=== PATIENT | male | born 1955 | race Caucasian/White ===

== ENCOUNTER 2023-09-12 10:22 | Observation (INO) | payer OTHER, SELFPAY ==
[2023-09-12] VITALS (14 sets, daily range): BP systolic 125–169; BP diastolic 70–90; PULSE 59–78; RESP 15–18; TEMP 36.1–36.9; O2SAT 94–98; BMI 31.4
--- NOTE | 2023-09-12 10:37 | DI.RAD.S_ITS ---
PROCEDURE: XR HIP W PEL IF DONE LT 2V INDICATIONS: fall TECHNIQUE: AP pelvis with lateral view(s) of the left hip(s). COMPARISON: None. FINDINGS: Bones: No fractures or dislocations. Pelvic ring appears intact. No suspicious bony lesions. Soft tissues: The visualized bowel gas pattern is normal. No suspicious soft tissue calcifications. IMPRESSION: No acute bony abnormality. If there is high clinical suspicion for occult fracture, CT of the pelvis is recommended. Dictated by: Melissa Hood M.D. on 09/12/2023 at 11:58 Approved by: Melissa Hood M.D. on 09/12/2023 at 11:59
--- NOTE | 2023-09-12 10:38 | DI.RAD.S_ITS ---
PROCEDURE: XR SHOULDER LT MIN 2V INDICATIONS: fall TECHNIQUE: 2 views of the shoulder were acquired. COMPARISON: None. FINDINGS: Bones: There is a comminuted, displaced fracture of the scapular body. There are questionable for minimally displaced fractures of the posterior and lateral aspect of the left 4th rib. Soft tissues: There is a questionable pulmonary nodule at the left apex visualized on the oblique view. This is not seen on the AP view and may represent a bone island within the 2nd rib. IMPRESSION: 1. Comminuted displaced scapular body fracture. 2. Questionable rib fractures. 3. Left apical pulmonary nodule versus costal bone island. Dictated by: Melissa Hood M.D. on 09/12/2023 at 11:59 Approved by: Melissa Hood M.D. on 09/12/2023 at 12:01
--- NOTE | 2023-09-12 10:46 | DI.RAD.S_ITS ---
PROCEDURE: XR RIBS LT MIN 3V W CXR1V INDICATIONS: fall rib pain TECHNIQUE: 2 views of the left ribs were acquired, along with a single view chest. COMPARISON: [facility], CR, XR SHOULDER LT MIN 2V, 09/12/2023, 10:50. FINDINGS: Surgical changes and devices: None. Bones and chest wall: There are multiple left posterior rib fractures including a there are likely 4-8 posterior left rib fractures. A questionable bone island is present within the 2nd or 4th rib versus a pulmonary nodule. The scapular fracture is not well appreciated on the current study. Lungs and pleura: No pleural effusions or pneumothorax. Lungs appear clear. Mediastinum: Mediastinal contours appear normal. Heart size is normal. IMPRESSION: 1. Multiple left rib fractures. No pneumothorax. 2. Questionable bone island versus pulmonary nodule. Dictated by: Melissa Hood M.D. on 09/12/2023 at 12:01 Approved by: Melissa Hood M.D. on 09/12/2023 at 12:04
--- NOTE | 2023-09-12 10:52 | ED_ITS ---
HPI - Fall General Chief Complaint: Fall Stated Complaint: fall, hip/ L shoulder pain Time Seen by Provider: 09/12/23 10:46 Source: patient Mode of arrival: Ambulatory History of Present Illness HPI Narrative: Patient is a healthy 68-year-old male without significant past medical problems presenting today with fall. She was on a boat he went to shake hands when he fell through about 3-4 feet landing on his left side. He did not hit his head or lose consciousness he is not on antiplatelet or anticoagulation medication. He is significant left-sided rib and shoulder pain. Along with some mild left hip pain but he is ambulatory. Related Data Home Medications Medication Instructions Recorded Confirmed No Known Home Medications 09/12/23 09/12/23 Allergies Allergy/AdvReac Type Severity Reaction Status Date / Time No Known Drug Allergies Allergy Verified 09/12/23 10:33 Patient History Social History household members: spouse Smoking Status: Never smoker alcohol intake: current Smoking Status: Unknown if ever smoked alcohol intake frequency: holidays/special occasions only Substance Use Type: does not use Exam Initial Vital Signs Initial Vital Signs: Vital Signs Temperature 97.7 F 09/12/23 10:24 Pulse Rate 59 L 09/12/23 10:24 Respiratory Rate 15 09/12/23 10:24 Blood Pressure 129/72 09/12/23 10:24 Pulse Oximetry 98 09/12/23 10:24 Oxygen Delivery Method Room Air 09/12/23 10:24 GENERAL: Alert 68-year-old male appears to be in pain HEENT: Head atraumatic,EOMI, pupils reactive, face symmetric, moist mucous membranes CARDIOVASCULAR: Regular rate and rhythm without murmurs, rubs or gallops. RESPIRATORY: Breath sounds equal bilaterally, no wheezes rales or rhonchi. Tender left posterior rib without paradoxical movement significant contusion left ABDOMEN: Soft, nontender. Normoactive bowel sounds all 4 quadrants. No guarding or rebound. BACKL: Abrasions noted left ribs about 4 through 11 no paradoxical movement tender to touch no vertebral tenderness step-off EXTREMITIES: Normal range of motion, no clubbing or edema. Neurovascularly intact Left shoulder decreased range of motion tender scapula, distal radial pulse intact no clavicle step-off Pelvis and hips stable NEUROLOGICAL: Alert and oriented x4.Normal gait and speech. SKIN: Warm, dry, no laceration, no petechiae, no rashes or lesions. Scores GCS [place] coma scale eye opening: Spontaneous [place] coma scale verbal response: Orientated [place] coma scale motor response: Obey commands [place] coma scale total score: 15 Course Orders Ordered: ED Orders 09/12/23 10:37 XR hip w pel if done LT 2V Stat 09/12/23 10:38 XR shoulder LT min 2V Stat 09/12/23 10:46 XR ribs LT min 3V w CXR1V Stat 09/12/23 12:29 CT chest wo con Stat 09/12/23 14:07 Education, smoking cessation ONGOING 09/12/23 14:30 CBC Auto Diff [Complete Blood Count AUTO DIFF] Stat CMP [Comprehensive Metabolic Panel] Stat Acetaminophen (Acetaminophen 325 Mg Tablet) 650 mg PO Q6H PRN PRN Reason: Fever/Mild Pain (1-3) Last Admin: 09/12/23 17:59 Dose: 650 mg Documented By: YARI Hydrocodone Bitart/Acetaminophen (Hydrocodone/Acet 5/325 Tablet) 1 tab PO Q4H PRN PRN Reason: Pain, Moderate (4-6) Last Admin: 09/12/23 16:01 Dose: 1 tab Documented By: YARI Enoxaparin Sodium (Enoxaparin 40 Mg/0.4 Ml Syringe) 40 mg SUBCUT DAILY TIANA Hydromorphone HCl (Hydromorphone 0.5 Mg Inj) 0.5 mg IV Q2H PRN PRN Reason: Pain, Severe (7-10) Ibuprofen (Ibuprofen 600 Mg Tablet) 600 mg PO Q6H PRN PRN Reason: Fever/Mild Pain (1-3) Last Admin: 09/12/23 17:58 Dose: 600 mg Documented By: YARI Naloxone HCl (Naloxone 0.4 Mg/Ml Vial) 0.2 mg IV Q2MIN PRN PRN Reason: Opiate Reversal Discontinued Medications Hydrocodone Bitart/Acetaminophen (Hydrocodone/Acet 5/325 Tablet) 1 tab PO NOW ONE Stop: 09/12/23 12:29 Last Admin: 09/12/23 12:43 Dose: 1 tab Documented By: NEVILLE Ibuprofen (Ibuprofen 400 Mg Tablet) 800 mg PO NOW ONE Stop: 09/12/23 10:55 Last Admin: 09/12/23 11:12 Dose: 800 mg Documented By: SPF Vital Signs Vital signs: Vital Signs - 8 hr 09/12/23 11:14 09/12/23 11:30 09/12/23 11:30 Pulse Rate 63 59 L Blood Pressure 136/75 Pulse Oximetry 98 98 Oxygen Delivery Method Room Air 09/12/23 12:00 09/12/23 12:00 09/12/23 12:30 Pulse Rate 66 73 Blood Pressure 125/70 Pulse Oximetry 98 96 Oxygen Delivery Method 09/12/23 12:31 09/12/23 12:31 09/12/23 13:08 Pulse Rate 69 71 Blood Pressure 150/75 H Pulse Oximetry 97 98 Oxygen Delivery Method Room Air 09/12/23 13:30 09/12/23 14:00 Pulse Rate 76 78 Blood Pressure Pulse Oximetry 95 94 Oxygen Delivery Method MDM - Fall Lab Data 09/12/23 14:30 09/12/23 14:[address] scan - chest: Radiologist's Impression: PROCEDURE: CT CHEST WO CON INDICATIONS: Multiple rib fractures, scapular fracture TECHNIQUE: Noncontrast 5 mm thick sections acquired from the pulmonary apices to the posterior costophrenic angles. 1 mm lung window, 5 mm thick coronal and sagittal and 7 mm axial MIP reformats were then acquired. For radiation dose reduction, the following was used: automated exposure control, adjustment of mA and/or kV according to patient size. COMPARISON: None. FINDINGS: Image quality: Diagnostic. Lungs and pleura: Lung volumes are low. The right lung is clear. Patchy airspace opacities are present at the left lung base. There is a trace left pleural effusion which may represent a small hemothorax. No pneumothorax. Mediastinum: Heart size is normal. No pericardial effusion. No mediastinal adenopathy by size criteria. Thoracic aorta and central pulmonary arteries are normal in size. Esophagus is normal in caliber. There is a small hiatal hernia. Bones and chest wall: Thyroid is unremarkable. There are minimally displaced posterior left 4th, 5th, 6th, 7th, 8th, and 9th rib fractures. There is a comminuted, impacted, displaced left inferior scapular body fracture. Vertebral body height is preserved. No findings to suggest compression fracture. Upper Abdomen: Visualized upper abdominal solid organs and bowel loops appear normal in the absence of contrast. IMPRESSION: 1. Multiple left rib fractures and scapular body fracture. 2. Left basilar pulmonary radiopacities which may represent aspiration or atelectasis. Trace pleural effusion may represent trace hemothorax. No pneumothorax. Dictated by: Melissa Hood M.D. on 09/12/2023 at 13:22 MDM Narrative Medical decision making narrative: Patient is 68-year-old male presents today after a fall. He has a contusion over left ribs found to have multiple rib fractures on x-ray along with a scapular fracture. CT confirmed fractures 4 through 9 and a comminuted scapular fracture. His abdomen is soft nontender. Not on any anticoagulation and hemodynamically stable. He initially only wanted Motrin for pain eventually took [place]. Dr. Hernadez updated patient's symptoms test results reviewed CT states that sling only for scapular fracture no need any sort of intervention. Dr. Tejeda updated on patient's symptoms test results agrees with admission. Blood work ordered and pending. Discharge Plan Departure Patient Disposition: Admitted as Observation Clinical Impression: Fracture of ribs, multiple, closed, Fracture closed, scapula Admit Date/Time: 09/12/23 14:24 Admit Provider: Douglas Tejeda
[2023-09-12] MEDS: IBUPROFEN 400 MG TABLET 800 MG PO (11:12)
--- NOTE | 2023-09-12 12:29 | DI.CT.S_ITS ---
PROCEDURE: CT CHEST WO CON INDICATIONS: Multiple rib fractures, scapular fracture TECHNIQUE: Noncontrast 5 mm thick sections acquired from the pulmonary apices to the posterior costophrenic angles. 1 mm lung window, 5 mm thick coronal and sagittal and 7 mm axial MIP reformats were then acquired. For radiation dose reduction, the following was used: automated exposure control, adjustment of mA and/or kV according to patient size. COMPARISON: None. FINDINGS: Image quality: Diagnostic. Lungs and pleura: Lung volumes are low. The right lung is clear. Patchy airspace opacities are present at the left lung base. There is a trace left pleural effusion which may represent a small hemothorax. No pneumothorax. Mediastinum: Heart size is normal. No pericardial effusion. No mediastinal adenopathy by size criteria. Thoracic aorta and central pulmonary arteries are normal in size. Esophagus is normal in caliber. There is a small hiatal hernia. Bones and chest wall: Thyroid is unremarkable. There are minimally displaced posterior left 4th, 5th, 6th, 7th, 8th, and 9th rib fractures. There is a comminuted, impacted, displaced left inferior scapular body fracture. Vertebral body height is preserved. No findings to suggest compression fracture. Upper Abdomen: Visualized upper abdominal solid organs and bowel loops appear normal in the absence of contrast. IMPRESSION: 1. Multiple left rib fractures and scapular body fracture. 2. Left basilar pulmonary radiopacities which may represent aspiration or atelectasis. Trace pleural effusion may represent trace hemothorax. No pneumothorax. Dictated by: Melissa Hood M.D. on 09/12/2023 at 13:22 Approved by: Melissa Hood M.D. on 09/12/2023 at 13:30
[2023-09-12] MEDS: HYDROCODONE/ACET 5/325 TABLET 1 TAB PO ×3 (12:43→19:55)
[2023-09-12 15:18] LABS: Add Manual Diff / Slide Review NO; Basophils Absolute Auto 0 /uL (0-100); Basophils Percent Auto 0.1 % (0-2); Eosinophils Absolute Auto 0 /uL (0-450); Eosinophils Percent Auto 0.1 % (2-4); Hemoglobin 15.3 g/dL (13.5-17.5); Lymphocytes Absolute Auto 800 /uL (1100-4500); Lymphocytes Percent Auto 5.1 % (25-40); Mean Corpuscular Hemoglobin 30.4 PG (26-34); Mean Corpuscular Volume 89.5 fL (80-100); Monocytes Absolute Auto 600 /uL (0-900); Monocytes Percent Auto 4.3 % (3-14); Neutrophils Absolute Auto 13500 /uL (1500-7000); Neutrophils Percent Auto 90.4 % (50-75); Platelet Count 290 X10^3/uL (150-400); Red Blood Cell Count 5.03 X10^6/uL (4.5-5.9); Red Cell Distribution Width 13.9 % (11.6-14.8); White Blood Cell Count 14.9 X10^3/uL (4.5-11.0)
[2023-09-12 15:24] LABS: Alanine Aminotransferase 26 IU/L (<50); Albumin 4.4 g/dL (3.5-5.0); Albumin Globulin Ratio 1.5 (1.0-2.8); Alkaline Phosphatase 57 U/L (38-126); Aspartate Aminotransferase 30 IU/L (17-59); BUN Creatinine Ratio 23.8 (6-22); Bilirubin Total 1.3 mg/dL (0.2-1.3); Blood Urea Nitrogen 20 mg/dL (9-20); Calcium 9.4 mg/dL (8.4-10.2); Carbon Dioxide 25 mmol/L (22-32); Chloride 105 mmol/L (98-107); Estimated Glomerular Filt Rate > 60 mL/min (>60); Globulin 2.9 g/dL (1.7-4.1); Glucose 121 mg/dL (80-110); HEMOLYSIS 26 (0-50); Potassium 4.1 mmol/L (3.4-5.1); Sodium 136 mmol/L (137-145); Total Protein 7.3 g/dL (6.3-8.2)
[2023-09-12] MEDS: IBUPROFEN 600 MG TABLET PO ×2 (17:58→23:25)
[2023-09-12] MEDS: ACETAMINOPHEN 325 MG TABLET 650 MG PO ×2 (17:59→23:25)
--- NOTE | 2023-09-12 18:29 | P.HP_ITS ---
History of Present Illness History of Present Illness Date Patient Seen: 09/12/23 Time Patient Seen: 19:51 Chief complaint: fall, hip/ L shoulder pain Narrative: Mr. Purdy is a 68-year-old man who had a fall today of approximately 4 ft onto his left chest. He did not strike his head or lose consciousness. Presented to the [facility] 09/12/2023 for evaluation with complaint of left chest and left upper extremity pain. On arrival hemodynamically stable hematocrit 45 mild leukocytosis the remainder of his labs were unremarkable. Imaging CT chest abdomen and pelvis - left rib fractures 4 through 9. -left scapular body fracture [facility] Social History household members: spouse Smoking Status: Never smoker alcohol intake: current Meds Home Medications and Allergies Home Medications Medication Instructions Recorded Confirmed Type No Known Home Medications 09/12/23 09/12/23 History Allergies Allergy/AdvReac Type Severity Reaction Status Date / Time No Known Drug Allergies Allergy Verified 09/12/23 10:33 Exam Vital Signs (past 8 hours): - 09/12/23 11:14 09/12/23 11:30 09/12/23 11:30 Temperature Pulse Rate 63 59 L Respiratory Rate Blood Pressure 136/75 Pulse Oximetry 98 98 Oxygen Delivery Method Room Air Oxygen Flow Rate 09/12/23 12:00 09/12/23 12:00 09/12/23 12:30 Temperature Pulse Rate 66 73 Respiratory Rate Blood Pressure 125/70 Pulse Oximetry 98 96 Oxygen Delivery Method Oxygen Flow Rate 09/12/23 12:31 09/12/23 12:31 09/12/23 13:08 Temperature Pulse Rate 69 71 Respiratory Rate Blood Pressure 150/75 H Pulse Oximetry 97 98 Oxygen Delivery Method Room Air Oxygen Flow Rate 09/12/23 13:30 09/12/23 14:00 09/12/23 14:30 Temperature Pulse Rate 76 78 74 Respiratory Rate Blood Pressure Pulse Oximetry 95 94 94 Oxygen Delivery Method Room Air Oxygen Flow Rate 09/12/23 15:10 Temperature 98.4 F Pulse Rate 67 Respiratory Rate 16 Blood Pressure 152/76 H Pulse Oximetry 97 Oxygen Delivery Method Oxygen Flow Rate 0 Oxygen Delivery Method Room Air Oxygen Flow Rate 0 Narrative Exam Narrative: GENERAL: A well nourished, well developed adult man, resting comfortably, in no acute distress. HEENT: Normocephalic, atraumatic. No scleral icterus CHEST: Rising symmetrically. No audible wheezes CARDIOVASCULAR: Warm and well perfused. Regular rate ABDOMEN: Soft, non-tender, non-distended EXTREMITIES: -left upper extremity palpable radial pulse motor sensory intact. Limited range of motion. NEUROLOGIC: Moving all extremities spontaneously. No gross motor deficits. Objective Labs 09/12/23 14:30 09/12/23 14:30 Labs: Laboratory Results - last 24 hr 09/12/23 14:30 WBC 14.9 H RBC 5.03 Hgb 15.3 Hct 45.0 MCV 89.5 MCH 30.4 MCHC 34.0 RDW 13.9 Plt Count 290 Neut % (Auto) 90.4 H Lymph % (Auto) 5.1 L [place] % (Auto) 4.3 Eos % (Auto) 0.1 L Baso % (Auto) 0.1 Neut # (Auto) 81066 H Lymph # (Auto) 800 L [place] # (Auto) 600 Eos # (Auto) 0 Baso # (Auto) 0 Sodium 136 L Potassium 4.1 Chloride 105 Carbon Dioxide 25 BUN 20 Creatinine 0.84 Estimated GFR > 60 BUN/Creatinine Ratio 23.8 H Glucose 121 H Calcium 9.4 Total Bilirubin 1.3 AST 30 ALT 26 Alkaline Phosphatase 57 Total Protein 7.3 Albumin 4.4 Globulin 2.9 Albumin/Globulin Ratio 1.5 Assessment & Plan Assessment and plan (1) Fracture closed, scapula: Qualifiers: Encounter type: initial encounter Scapula location: body Fracture alignment: displaced Laterality: left Qualified Code(s): S42.112A - Displaced fracture of body of scapula, left shoulder, initial encounter for closed fracture Status: Acute (2) Fracture of ribs, multiple, closed: Qualifiers: Encounter type: initial encounter Laterality: left Qualified Code(s): S22.42XA - Multiple fractures of ribs, left side, initial encounter for closed fracture Status: Acute Assessment & Plan narrative: 68-year-old man status post 4 feet fall onto left chest hemodynamically stable with left scapular and left rib fractures. Laboratory studies and imaging personally. Left rib fractures 4 through 9 -multimodal pain control -incentive spirometry Left scapular body fracture -sling -orthopedic consult likely non operative VTE prophylaxis -SCDs and prophylactic Lovenox Disposition Anticipate discharge home tomorrow following orthopedic evaluation Quality VTE Deep Vein Thrombosis/Pulmonary Embolism Present on Admission: No
--- NOTE | 2023-09-12 18:31 | DI.CT.S_ITS ---
PROCEDURE: CT ABDOMEN PELVIS W CON INDICATIONS: s/p fall TECHNIQUE: After the administration of intravenous contrast, axial sections acquired from the lung bases to the pubic symphysis. Coronal and sagittal reformats were performed. For radiation dose reduction, the following was used: automated exposure control, adjustment of mA and/or kV according to patient size. COMPARISON: None. FINDINGS: Image quality: Excellent. Lung bases: Please refer to separately dictated CT of the chest from the same day ABDOMEN: Liver: Hepatic cysts and subcentimeter hypodensities which are too small technique characterize and favored to represent simple cysts.. Gallbladder: Mildly contracted, otherwise unremarkable. Biliary ducts: Unremarkable. Pancreas: Unremarkable. Spleen: Unremarkable. Adrenal Glands: Unremarkable. Kidneys and Ureters: Unremarkable. Stomach and Bowel: Small hiatal hernia. Stomach, small bowel loops, and colon are unremarkable. Diverticulosis without evidence of acute diverticulitis. Normal appendix. Peritoneum: No abnormal intraperitoneal fluid. No free air. Ventral Wall: No hernias. Abdominal Nodes: No retroperitoneal or mesenteric adenopathy by size criteria. Vessels: Aorta and inferior vena cava are normal in size. PELVIS: Pelvic Organs: Unremarkable. Bladder: Unremarkable. Pelvic Nodes: No enlarged lymph nodes. Miscellaneous: Small fat containing inguinal hernias are seen. Bones: Degenerative changes of the spine, most pronounced at L5-S1. Left-sided rib fractures are redemonstrated. IMPRESSION: 1. No acute traumatic injury within the abdomen or pelvis. No hip fractures. 2. Diverticulosis without evidence of acute diverticulitis. 3. Left-sided rib fractures are redemonstrated. Dictated by: Aryan Kapadia M.D. on 09/12/2023 at 19:28 Approved by: Aryan Kapadia M.D. on 09/12/2023 at 19:33
[2023-09-13] VITALS: BP 149/84; PULSE 69; RESP 17; TEMP 36.1; O2SAT 96
[2023-09-13] MEDS: HYDROCODONE/ACET 5/325 TABLET 1 TAB PO ×2 (00:02→09:38)
--- NOTE | 2023-09-13 00:35 | PC.NURSE ---
Addendum entered by Blanca White R.N. 09/13/23 06:48: Patient ambulated to bathroom stand-by assistance @0430, slight limp d/t left hip pain. 8/10 pain after ambulating mostly in left shoulder, requested IV Dilaudid. Patient stated he immediately felt better after receiving dose. Resting in bed, call-light within reach, bed alarm is on. 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 Lung sounds are clear, incentive spirometer at bedside. Sling for left arm ordered per MD Tejeda & placed. Spouse is in the room. Patient has complaints of 7/10 pain in the left shoulder, left hip, & left side of chest (d/t multiple rib fx). Pain increases when taking a deep breath. Ibuprofen & Tylenol given Q6hrs, [place] given Q4hrs for pain, pt states it has been effective. Denies nausea or dizziness. SCDs are on. Patient is ambulatory and able to walk to the bathroom, educated to use call-light prior to getting OOB.
[2023-09-13 04:00] VITALS: BP 147/92; PULSE 71; RESP 16; TEMP 35.8; O2SAT 98
[2023-09-13] MEDS: HYDROMORPHONE 0.5 MG INJ IV ×2 (04:31→12:50)
[2023-09-13] MEDS: IBUPROFEN 600 MG TABLET PO (04:32)
[2023-09-13 08:00] VITALS: BP 124/72; PULSE 72; RESP 16; TEMP 36.2; O2SAT 97; O2SAT 98
[2023-09-13] MEDS: ENOXAPARIN 40 MG/0.4 ML SYRINGE SUBCUT (09:38)
--- NOTE | 2023-09-13 10:22 | P.CONS_ITS ---
History of Present Illness Consult details Date Patient Seen: 09/13/23 Time Patient Seen: 10:22 Chief complaint: fall, hip/ L shoulder pain Reason for consult: Left scapula fx Narrative: Mr Whitley is a healthy, 68 yo gentleman who experienced a ground level fall onto his left side yesterday, resulting in fractures of multiple ribs on the left as well as a left-sided scapular body fracture. He was admitted to Dr Ileana vazquez/ general surgery and Dr Hernadez was consulted for scapular fx. On visit this morning, he is c/o left-sided chest and shoulder pain and worried about receiving pain medication prior drive back home to [place]. He plans to receive future medical care in [place]. He is right-hand dominant. Meds Home Medications and Allergies Home Medications Medication Instructions Recorded Confirmed Type No Known Home Medications 09/12/23 09/12/23 History Allergies Allergy/AdvReac Type Severity Reaction Status Date / Time No Known Drug Allergies Allergy Verified 09/12/23 10:33 Review of Systems Musculoskeletal Musculoskeletal: Reports system reviewed and no additional complaints, except as documented Exam Vital Signs (past 8 hours): - 09/13/23 04:00 09/13/23 04:00 09/13/23 08:00 Temperature 96.4 F L 97.2 F L Pulse Rate 71 72 Respiratory Rate 16 16 Blood Pressure 147/92 H 124/72 Pulse Oximetry 98 98 97 Oxygen Delivery Method Room Air Oxygen Flow Rate 0 0 09/13/23 08:00 Temperature Pulse Rate Respiratory Rate Blood Pressure Pulse Oximetry 98 Oxygen Delivery Method Room Air Oxygen Flow Rate Oxygen Delivery Method Room Air Oxygen Flow Rate 0 Narrative Exam Narrative: LUE exam: 5/5 gas blender strength and hand intrinsics. Pts left hand intrinsics and strength not as powerful as right d/t remote injury to left wrist. Able to flex and extend at wrist without difficulty. Full extension of elbow limited d/t pain. Motion of shoulder not examined d/t injury. Sling well placed. No significant ecchymosis noted. Sensation to touch intact throughout UE. Const General: cooperative, healthy appearing, comfortable and well developed Eyes General: appearance normal, both eyes and all related structures Neck Neck: normal visual inspection Resp Effort & Inspection: normal respiratory effort and able to speak in complete sentences Cardio Rate: regular rate Neuro General: patient alert, patient awake and patient oriented x3 Objective Labs 09/12/23 14:30 09/12/23 14:30 Labs: Laboratory Results - last 24 hr 09/12/23 14:30 WBC 14.9 H RBC 5.03 Hgb 15.3 Hct 45.0 MCV 89.5 MCH 30.4 MCHC 34.0 RDW 13.9 Plt Count 290 Neut % (Auto) 90.4 H Lymph % (Auto) 5.1 L [place] % (Auto) 4.3 Eos % (Auto) 0.1 L Baso % (Auto) 0.1 Neut # (Auto) 00441 H Lymph # (Auto) 800 L [place] # (Auto) 600 Eos # (Auto) 0 Baso # (Auto) 0 Sodium 136 L Potassium 4.1 Chloride 105 Carbon Dioxide 25 BUN 20 Creatinine 0.84 Estimated GFR > 60 BUN/Creatinine Ratio 23.8 H Glucose 121 H Calcium 9.4 Total Bilirubin 1.3 AST 30 ALT 26 Alkaline Phosphatase 57 Total Protein 7.3 Albumin 4.4 Globulin 2.9 Albumin/Globulin Ratio 1.5 PFSH Social History household members: spouse Tobacco & Substance Use Smoking Status: Never smoker alcohol intake: current Assessment & Plan Assessment and plan (1) Fracture closed, scapula: Qualifiers: Encounter type: initial encounter Fracture alignment: displaced L aterality: left Scapula location: body Qualified Code(s): S42.112A - Displaced fracture of body of scapula, left shoulder, initial encounter for closed fracture Status: Acute Plan Unrestricted active ROM at hand, wrist, and elbow on left. Limit weightbearing of left hand to 3 pounds. Sling while upright, ok for pendulum exercises on left. Follow up w/ local orthopedist in 2 weeks for repeat imaging, sooner if he experiences any neurovascular changes on left.
--- NOTE | 2023-09-13 11:50 | PT.IIE ---
Current Diagnoses Multiple fractures of ribs, left side, initial encounter for closed fracture (09/12/23) Displaced fracture of body of scapula, left shoulder, initial encounter for closed fracture (09/12/23) Physical Therapy Inpatient Evaluation/Re-Eval M1 PT/OT-IP Prior Functional Status Start: 09/13/23 14:17 Freq: NEEDED Status: Active Protocol: Document 09/13/23 11:50 AB (Rec: 09/13/23 14:31 AB [id number]) Medical Review Prior Functional Status Medical History Reviewed Yes Communication able to make needs known Mobility and Gait pt stated that he was independent with all mobilities and ambulation without AD Social History Household Members spouse Living Arrangements House Number of Floors (Floors) One Floor Number of Stairs To Enter/Railing? no steps to enter from the garage Home Environment Walk in Shower Home Equipment Hand Held Shower Additional Social History Comment pt has an adjustable bed M2 PT-IP Current Condition Start: 09/13/23 14:17 Freq: NEEDED Status: Active Protocol: Document 09/13/23 11:50 AB (Rec: 09/13/23 14:31 AB [id number]) Physical Therapy Current Condition Current Condition Evaluation Date 09/13/23 Treatment Diagnosis s/p fall; L rib fx; L scapular fx; difficulty in walking Onset Date 09/12/23 M3 PT-IP Subjective Start: 09/13/23 14:17 Freq: NEEDED Status: Active Protocol: Document 09/13/23 11:50 AB (Rec: 09/13/23 14:31 AB [id number]) Subjective Physical Therapy Visit Type Type Initial Evaluation Visit Start Time 11:50 Visit Stop Time 12:30 Total Visit Minutes 40 Number of SEARCH STRATEGIST Visits 0 Physical Therapy Visit Comments Patient Comments agreeable to do PT Therapy Pain Assessment Pain When Pain Assessed At Rest Location left shoulder/hip Intensity 7 Scale Used Numeric (0 - 10) Pain Management Techniques Distraction,Modification of Treatment,Re-positioning, Timing of Activity with Medications M4 PT-IP Mobility and Gait Start: 09/13/23 14:17 Freq: NEEDED Status: Active Protocol: Document 09/13/23 11:50 AB (Rec: 09/13/23 14:31 AB [id number]) PT-Bed Mobility Assessment Supine to Sit Supine to Sit Standby Assistance,Head of Bed Elevated Sit to Supine Sit to Supine Standby Assistance,Head of Bed Elevated PT-Transfer Assessment Sit to and From Stand Sit to and from Stand Standby Assistance Equipment Transfer Assistive Device None,Gait Belt Orthotic/Prosthetic Devices or Brace: Yes Comments Mobility Comments pt is sitting on EOB. spouse in room. pt agreed to do PT. educated pt and spouse regarding pt's scapular/L shoulder restrictions and sling management. doffed sling and pt educated elbow/ hand/wrist exercises and completed. educated pt and spouse on how to put sling on. PT demonstrated and spouse counter demonstrated and was able to put sling on. pt completed sit<>supine SBA with HOB elevated ~ 30 deg. pt has an adjustable bed at home . educated spouse on proper bed and chair positioning for pt. pt completed sit to stand from EOB SBA and ambulated in room without AD. pt presents with antalgic gait but without LOB. pt stated that he hurt his L hip when he had the fall. pt is (-)for L hip fx from xray result. pt sat back on EOB. pt provided with HEP sheet. pt and spouse without further concerns. Gait Assessment Gait Gait Assistance Required: Standby Assistance Distance (Feet) 40 Able to Maintain Weight Bearing Status Yes During Gait Assistive Devices Assistive Device None Orthotic/Prosthetic Devices or Brace: Yes Gait Deviations General Gait Pattern Antalgic,Step-to Gait Factors Limiting Gait Function Factors Limiting Gait Function Decreased Activity Tolerance, Decreased Strength,Limited Range of Motion,Pain,Poor Balance,Poor Safety Awareness PT-Balance Assessment Sitting Balance and Reactions Static Sitting Balance Ability Normal Dynamic Sitting Balance Ability Normal Standing Balance and Reactions Static Standing Balance Ability Good Dynamic Standing Balance Ability Fair Device Used without AD M5 PT-IP Objective Assessments Start: 09/13/23 14:17 Freq: NEEDED Status: Active Protocol: Document 09/13/23 11:50 AB (Rec: 09/13/23 14:31 AB [id number]) Orientation Orientation/Cognition Level of Alertness Alert Orientation Name,Place,Situation Language Function Ability No Deficits Noted Safety Awareness Understands Safety Issues Memory Description No Deficits Noted Gross Range of Motion Lower Extremity ROM Assessment Within Functional Limits Strength Lower Extremity Strength Assessment Within Functional Limits Coordination Assessment Gross Coordination Gross Coordination WNL Sensation Assessment Sensation Gross Sensation WNL Muscle Tone Muscle Tone WNL Yes M6 PT-IP Treatment Start: 09/13/23 14:17 Freq: NEEDED Status: Active Protocol: Document 09/13/23 11:50 AB (Rec: 09/13/23 14:31 AB [id number]) Physical Therapy Treatment Education Education Provided Precautions,Weight Bearing Status,Safety M7 PT-IP Assessment and Plan Start: 09/13/23 14:17 Freq: NEEDED Status: Active Protocol: Document 09/13/23 11:50 AB (Rec: 09/13/23 14:31 AB [id number]) PT Summary Assessment and Plan Potential Rehabilitation Potential Fair Status of Condition at Evaluation Evolving Summary Impairments Pain,ROM,Strength,Balance, Coordination,Sensation,Tone, Cognition,Bed Mobility, Transfers,Gait,Activity Tolerance Assessment Summary pt is a 68 y/o M who had a fall and sustained multiple L rib fractures and L scapular body fx. pt has L sling on and is NWB on LUE . pt requiring SBA with mobility without AD. caregiver training conducted for sling management and spouse was able to assist pt with sling. pt plans to go home with spouse to assist. pt may go home when medically stable. Goals Bed Mobility Goal Independent Transfer Goal Independent Gait Goal Independent Gait Distance 300 Days to Meet Goals 5 Frequency of Treatment Frequency Of Treatment Once a Day Treatment Plan Physical Therapy Treatment Plan Bed Mobility Training,Transfer Training,Gait Training, Therapeutic Exercise,Balance Retraining,Discharge Planning, Hot or Cold Pack,Neuromuscular Re-ed,Coordination Retraining Precautions Shoulder Precautions Sling,Pendulums Other Precautions falls per PA Beh notes dated : Unrestricted active ROM at hand, wrist, and elbow on left. Limit weightbearing of left hand to 3 pounds. Sling while upright, ok for pendulum exercises on left. Follow up w/ local orthopedist in 2 weeks for repeat imaging, sooner if he experiences any neurovascular changes on left. Weight Bearing Status Weight Bearing Status Non-Weight Bearing Recommendations To Nursing Amount of Assist Needed Standby Assistance Discharge Recommendations PT Discharge Recommendations Home with Assistance, Outpatient PT Transportation Needs at Discharge Private Vehicle
--- NOTE | 2023-09-13 11:53 | P.DS_ITS ---
History of Present Illness History of Present Illness Chief complaint: fall, hip/ L shoulder pain Discharge Providers Provider Date of admission: 09/12/23 14:24 Discharge Date: 09/13/23 Consults: 09/12/23 18:33 Consult to Orthopedic Surgery Routine Comment: Consulting Provider: [facility] Reason for consultation: L scapular fracture Has provider been notified: No 09/12/23 18:37 Consult to Physical Therapy Evaluate & Treat Comment: Physician Instructions: Evaluate and Treat Discharge provider: Lloyd Akers MD Summary Hospital Course Discharge Diagnosis: Left-sided rib fractures and left scapular fracture Hospital Course: Donnie was admitted for pulmonary hygiene and pain control. Orthopedics saw him for his scapular fracture and prescribed a sling. He was discharged with instructions to continue using his incentive spirometer until his pain was gone. Exam Vital Signs (past 8 hours): - 09/13/23 04:00 09/13/23 04:00 09/13/23 08:00 Temperature 96.4 F L 97.2 F L Pulse Rate 71 72 Respiratory Rate 16 16 Blood Pressure 147/92 H 124/72 Pulse Oximetry 98 98 97 Oxygen Delivery Method Room Air Oxygen Flow Rate 0 0 09/13/23 08:00 Temperature Pulse Rate Respiratory Rate Blood Pressure Pulse Oximetry 98 Oxygen Delivery Method Room Air Oxygen Flow Rate Oxygen Delivery Method Room Air Oxygen Flow Rate 0 Objective Labs 09/12/23 14:30 09/12/23 14:30 Labs: Laboratory Results - last 24 hr 09/12/23 14:30 WBC 14.9 H RBC 5.03 Hgb 15.3 Hct 45.0 MCV 89.5 MCH 30.4 MCHC 34.0 RDW 13.9 Plt Count 290 Neut % (Auto) 90.4 H Lymph % (Auto) 5.1 L [place] % (Auto) 4.3 Eos % (Auto) 0.1 L Baso % (Auto) 0.1 Neut # (Auto) 75478 H Lymph # (Auto) 800 L [place] # (Auto) 600 Eos # (Auto) 0 Baso # (Auto) 0 Sodium 136 L Potassium 4.1 Chloride 105 Carbon Dioxide 25 BUN 20 Creatinine 0.84 Estimated GFR > 60 BUN/Creatinine Ratio 23.8 H Glucose 121 H Calcium 9.4 Total Bilirubin 1.3 AST 30 ALT 26 Alkaline Phosphatase 57 Total Protein 7.3 Albumin 4.4 Globulin 2.9 Albumin/Globulin Ratio 1.5 PFSH Social History household members: spouse Smoking Status: Never smoker alcohol intake: current Discharge Plan Discharge Plan Patient Disposition: Home Provider Discharge Comment: Use incentive spirometer until rib pain resolves. Take a stool softener or a fiber supplement while taking the [place]. Discharge orders & Medications Prescriptions: New hydrocodone-acetaminophen 5-325 mg tablet 1 tab PO Q8H PRN (Reason: pain) Qty: 20 0RF Visit Report/Discharge Packet Stand Alone Forms: Patient Portal/API, Stroke Signs & Symptoms Discharge Data Attending Provider: Douglas Tejeda Admit Date/Time: 09/12/23 14:24 Quality VTE Deep Vein Thrombosis/Pulmonary Embolism Present on Admission: No
[2023-09-13 12:00] VITALS: O2SAT 98
--- NOTE | 2023-09-13 13:01 | CM.DANOTE ---
Patient is a 68 yo male who was admitted on 09/12/23 for Fall with fxs. Pt has REG MCR ADV for insurance and his PCP is in [place]. EMR was reviewed. Per Ortho Consult, pt with multiple rib fx and scapula fx but no surgery at this time and pt to use a sling and pain management. Per Surgeon, pt medically stable to d/c home today with outpt f/u and no identified barriers to discharge. Per PT, pt fitted with sling and participated in teaching and spouse bedside and participate in CG training and given educational handouts. SW met bedside with pt and spouse and explained role and they confirm they live in [place] and are both active and independent at baseline and pt does not use DME for ambulation and he still drives. Pt and spouse were in [place] from home viewing a boat for sale when pt slipped on the wet boat and injured himself. Spouse confirms that she can transport pt home today and SW helped confirm that scripts were sent to [place] [facility]where and they will f/u with local Ortho MD once they get home later today. No further needs at this time. Plan: Patient to d/c home today via spouse POV back to [place] with their local outpt f/u with PCP and Ortho. No further SW needs at this time. MARY Blanca Discharge Planning/Care Management CM Discharge Assessment Start: 09/13/23 12:56 Freq: Status: Active Protocol: Document 09/13/23 12:56 BF (Rec: 09/13/23 13:01 [id number]) Discharge Planning Assessment Assigned Telemetry Monitor MARY Maharaj DPOA/Assigned Designee Name informally spouse Jaylyn Contact Information [phone] Advance Directives? No Advance Directives on File No History Provided By Patient,Significant Other, Medical Record Has Patient been admitted in last 30 No days? Prior Living Arrangements House Household Members spouse Type of transporation used prior to Drives own vehicle admit Independent with ADL's Yes Is patient alert and oriented? Yes Caregiver for Another No Barriers to Discharge No Discharge Plan Home Community Services Physical Therapy Transportation Arrangement Spouse bedside Referrals Initiated None needed Whiteboard Updated in Patient Room with Yes name and ext. # of Telemetry Monitor Review Status In Process Please Provide Date Initial DC 09/13/23 Assessment Was Performed Next Review Type Continued Stay Review
== END 2023-09-13 13:05 | disposition home or self-care (01) ==
LOC: ED 10:54 → AC 14:25
PROVIDERS: Admitting Provider Surgery; Emergency Provider Emergency Medicine; Referring Provider Emergency Medicine; Visit Provider Surgery
DX: S42.112A Displaced fracture of body of scapula, left shoulder, initial encounter for closed fracture (principal); S22.42XA Multiple fractures of ribs, left side, initial encounter for closed fracture; W18.30XA Fall on same level, unspecified, initial encounter
CPT/HCPCS: 36415; 71101; 71250; 73030; 73502; 74177; 80053; 85025; 96372; 96374; 97162; 97530; 99222; 99238; 99284; 99285; G0378; J1170; J1650; Q9967